=== PATIENT | male | born 2000 | race Caucasian/White ===

== ENCOUNTER 2020-11-02 09:08 | Emergency (ER) | payer OTHER ==
[~2020-11-02] VITALS: Ht 182.9 cm; Wt 104.3 kg
[2020-11-02] MEDS ORDERED: PROMETH-CODEIN 65 ML PO (09:56)
[2020-11-02] MEDS ORDERED: AMOXICILLIN 50500 MG PO (09:56)
[2020-11-02 10:15] VITALS: BP 120/72
== END 2020-11-02 10:15 | disposition home or self-care (01) ==
LOC: M.ERS 09:08
DX: J36 Peritonsillar abscess (principal); Z91.040 Latex allergy status; Z90.49 Acquired absence of other specified parts of digestive tract